=== PATIENT | female | born 1950 | race Caucasian/White ===

== ENCOUNTER → 2019-01-05 | Outpatient (CLI) | payer MEDICARE | END | disposition home or self-care (01) | LOC: CFH 14:44 | PROVIDERS: ATTEND Nurse Practitioner Family | DX: J47.9 Bronchiectasis, uncomplicated (principal) | CPT/HCPCS: 71046 ==

== ENCOUNTER 2019-04-25 16:09 | Outpatient (CLI) | payer MEDICARE | END 2019-04-25 23:59 | disposition home or self-care (01) | LOC: CFH 16:09 | PROVIDERS: ATTEND Internal Medicine Critical Care Medicine | DX: J98.11 Atelectasis (principal) | CPT/HCPCS: 71046 ==

== ENCOUNTER 2020-01-30 15:09 | Emergency (ER) | payer MEDICARE ==
[~2020-01-30] VITALS: Ht 162.6 cm; Wt 87.3 kg
--- NOTE | 2020-01-30 15:45 | NUR ---
Pt to room 34 per pedis. Pt presents to the ED today with c/o SOB and decreased saturation levels. Pt has Alpha Trypsin 1 disorder, and her doctor stopped her IVIG infusions in November to see how she does. Pt states "I've been going down hill since then. Usually when I start to feel the SOB, I increase my prednisone to 10mg, but my doctor told me to go to today, and once there, they sent me here." Pt states that her Oxygen saturation levels at the were 88%, but she did a lot of coughing in the car ride to the ED, and her O2 sat was 94% on RA. Pt has a dry non productive cough. Pt is otherwise A/O x4, has a strong steady gait, and denies any pain. No audible wheezing heard, but with auscultation, faint exp wheezes in the bases of bilateral lobes. Pt placed in gown, EKG performed, pt put on monitor, side rails up x1, and call light given with instructions. Warm blanket offered, but patient declines at this time.
[2020-01-30] MEDS ORDERED: ALBUTEROL/IPRATROPIUM 2.5MG/0.5MG, 3 ML NPPB ONE (16:30)
[2020-01-30] MEDS ORDERED: ALBUTEROL/IPRATROPIUM 2.5MG/0.5MG, 3 ML ONE (17:31)
[2020-01-30] MEDS ORDERED: PLEASE ENTER ALLERGIES MC SCH (18:00)
[2020-01-30 18:34] VITALS: BP 122/64
--- NOTE | 2020-01-30 18:36 | NUR ---
TASK RN: Patient/Caregiver given discharge instructions and they have confirmed that they understand the instructions. Patient ambulatory with steady gait.
== END 2020-01-30 18:37 | disposition home or self-care (01) ==
LOC: ED 16:49
DX: J98.01 Acute bronchospasm (principal); R94.31 Abnormal electrocardiogram [ECG] [EKG]
CPT/HCPCS: 71045; 93005; 94640; 99283; J7512

== ENCOUNTER 2020-04-08 13:52 | Outpatient (CLI) | payer MEDICARE | END 2020-04-08 23:59 | disposition home or self-care (01) | LOC: CARD 13:52 → RAD 23:59 | PROVIDERS: ATTEND Internal Medicine | DX: J45.50 Severe persistent asthma, uncomplicated (principal); R06.00 Dyspnea, unspecified | CPT/HCPCS: 71250; 94060; 94726; 94729 ==